=== PATIENT | male | born 1975 | race Caucasian/White ===

== ENCOUNTER 2017-02-05 09:25 | Emergency (ER) | payer SELFPAY ==
[~2017-02-05] VITALS: Ht 180.3 cm; Wt 120.0 kg
[2017-02-05 09:26] VITALS: BP 160/88; PULSE 82; RESP 16; TEMP 97.8; O2SAT 97
[2017-02-05] MEDS ORDERED: SODIUM CHLOR 0.9% 1000 ML INJ 1,000 ML IV ONE (09:39)
[2017-02-05] MEDS ORDERED: PROCHLORPERAZINE INJ 10 MG/2 ML VIAL IVP ONE (09:45)
[2017-02-05] MEDS ORDERED: KETOROLAC TROMETHAMINE 30 MG/ML (IVP) VIAL IVP ONE (09:45)
[2017-02-05] MEDS ORDERED: diphenhydrAMINE HCL 50 MG/ML VIAL IVP ONE (09:45)
[2017-02-05] MEDS ORDERED: SODIUM CHLORIDE 0.9% FLUSH 10 ML FLUSH IVF PRN (09:45)
--- NOTE | 2017-02-05 09:46 | PD ---
HPI Chief Complaint: Headache Time Seen by Provider: 09:37 Travel History International Travel<30 days: No Contact w/Intl Traveler<30days: No Traveled to known affect area: No History of Present Illness HPI 41-year-old male states that he has had a headache over the past couple of days. He denies any sudden onset. He states it feels like a right sided pressure. He states he doesn't get headaches frequently. He does note that he had a couple days of nonbloody diarrhea before this. He denies any vomiting or fever. He denies any other concurrent complaints. He denies any trauma. He denies specific modifying factors. Duration is couple of days. PFSH Past Medical History Medical History: Denies Significant Hx Past Surgical History Surgical History: No Previous Surgery Social History Tobacco Use: Yes Allergies-Medications (Allergen,Severity, Reaction): Coded Allergies: No Known Allergies (Unverified , 02/05/17) Reported Meds & Prescriptions Reported Meds & Active Scripts Active No Active Prescriptions or Reported Medications Review of Systems Except as stated in HPI: all other systems reviewed are Neg Physical Exam Narrative GENERAL: Well-nourished, well-developed patient. Well-appearing SKIN: Warm and dry. HEAD: Normocephalic and atraumatic. EYES: No injection or drainage. ENT: No nasal drainage noted. NECK: Supple, trachea midline. CARDIOVASCULAR: Regular rate and rhythm RESPIRATORY: No increased effort. No accessory muscle use. GASTROINTESTINAL: Abdomen soft, non-tender, nondistended. EXTREMITIES: No edema. NEUROLOGICAL: Awake and alert. Motor and sensory grossly within normal limits. Normal speech. Data Data Last Documented VS Vital Signs Date Time Temp Pulse Resp B/P (MAP) Pulse Ox O2 Delivery O2 Flow Rate FiO2 02/05/17 10:43 70 15 124/76 (92) 97 02/05/17 10:06 Room Air 02/05/17 09:26 97.8 Orders Orders Complete Blood Count With Diff (02/05/17 09:39) Basic Metabolic Panel (Bmp) (02/05/17 09:39) Ct Brain W/O Iv Contrast(Rout) (02/05/17 09:39) Ecg Monitoring (02/05/17 09:39) Iv Access Insert/Monitor (02/05/17 09:39) Oximetry (02/05/17 09:39) Sodium Chloride 0.9% Flush (Ns Flush) (02/05/17 09:45) Ketorolac Inj (Toradol Inj) (02/05/17 09:45) Prochlorperazine Inj (Compazine Inj) (02/05/17 09:45) Diphenhydramine Inj (Benadryl Inj) (02/05/17 09:45) Sodium Chlor 0.9% 1000 Ml Inj (Ns 1000 M (02/05/17 09:39) Ed Discharge Order (02/05/17 10:30) Labs Laboratory Tests Test 02/05/17 10:00 White Blood Count 5.9 TH/MM3 Red Blood Count 4.60 MIL/MM3 Hemoglobin 14.0 GM/DL Hematocrit 40.6 % Mean Corpuscular Volume 88.1 FL Mean Corpuscular Hemoglobin 30.5 PG Mean Corpuscular Hemoglobin Concent 34.6 % Red Cell Distribution Width 13.9 % Platelet Count 191 TH/MM3 Mean Platelet Volume 8.5 FL Neutrophils (%) (Auto) 58.9 % Lymphocytes (%) (Auto) 30.2 % Monocytes (%) (Auto) 7.0 % Eosinophils (%) (Auto) 3.3 % Basophils (%) (Auto) 0.6 % Neutrophils # (Auto) 3.5 TH/MM3 Lymphocytes # (Auto) 1.8 TH/MM3 Monocytes # (Auto) 0.4 TH/MM3 Eosinophils # (Auto) 0.2 TH/MM3 Basophils # (Auto) 0.0 TH/MM3 CBC Comment DIFF FINAL Differential Comment Blood Urea Nitrogen 11 MG/DL Creatinine 0.83 MG/DL Random Glucose 92 MG/DL Calcium Level 9.1 MG/DL Sodium Level 139 MEQ/L Potassium Level 4.1 MEQ/L Chloride Level 106 MEQ/L Carbon Dioxide Level 23.7 MEQ/L Anion Gap 9 MEQ/L Estimat Glomerular Filtration Rate 101 ML/MIN [facility] Medical Decision Making Medical Screen Exam Complete: Yes Emergency Medical Condition: Yes Medical Record Reviewed: Yes (past history confirmed) Interpretation(s) CBC & BMP Diagram 02/05/17 10:00 Calcium Level 9.1 Last [address] 02/05/17 0939 Signed Impressions: Service Date/Time: January 10:05 - CONCLUSION: Negative exam. Austin Mays MD Differential Diagnosis Tension, migraine, dehydration, URI Narrative Course Will check blood work, CT brain and dose with Compazine, Benadryl, Toradol and IV fluids and reevaluate ED workup no acute, Patient denies any new complaints and states that they are feeling better. Patient happy with care, all questions answered. Patient knows that follow up is incumbent on them and to return to the emergency room immediately if new or worsening symptoms develop. Patient given strict return precautions, vitals reviewed and are normal, agrees to further workup as an outpatient. Diagnosis Primary Impression: Cephalgia Qualified Codes: R51 - Headache Additional Impression: Diarrhea Qualified Codes: R19.7 - Diarrhea, unspecified Patient Instructions: General Instructions Additional Instructions: tylenol as needed, keep hydrated, follow with primary Med/Other Pt SpecificInfo: No Change to Meds Scripts No Active Prescriptions or Reported Meds Disposition: 01 DISCHARGE HOME Condition: Stable Reshma Simpson MD Feb 05, 2017 09:46
[2017-02-05 10:06] VITALS: BP 148/84; PULSE 78; RESP 15; O2SAT 97
[2017-02-05 10:09] LABS: AUTOMATED NEUTROPHIL # 3.5 TH/MM3 (1.8-7.7); BASOPHIL % 0.6 % (0.0-2.0); EOSINOPHIL # 0.2 TH/MM3 (0-0.4); EOSINOPHIL % 3.3 % (0.0-4.0); HEMATOCRIT 40.6 % (39.0-51.0); LYMPH % 30.2 % (9.0-44.0); LYMPHOCYTE # 1.8 TH/MM3 (1.0-4.8); MEAN CELL VOLUME 88.1 FL (80.0-100.0); MEAN CORPUSCULAR HEMOGLOBIN 30.5 PG (27.0-34.0); MEAN CORPUSCULAR HGB CONC 34.6 % (32.0-36.0); MEAN PLATELET VOLUME 8.5 FL (7.0-11.0); MONOCYTE # 0.4 TH/MM3 (0-0.9); NEUT % 58.9 % (16.0-70.0); PLATELET COUNT 191 TH/MM3 (150-450); RED CELL DISTRIBUTION WIDTH 13.9 % (11.6-17.2); WHITE BLOOD COUNT 5.9 TH/MM3 (4.0-11.0)
--- NOTE | 2017-02-05 10:13 | RADRPT ---
EXAM DATE/TIME: 02/05/2017 10:05 [facility] COMPARISON: No previous studies available for comparison. INDICATIONS : Cephalgia, right eye pain. RADIATION DOSE: 45.94 CTDIvol (mGy) MEDICAL HISTORY : None SURGICAL HISTORY : None. ENCOUNTER: Initial ACUITY: 1 day PAIN SCALE: 6/10 LOCATION: Right cranial TECHNIQUE: Multiple contiguous axial images were obtained of the head. Using automated exposure control and adj ustment of the mA and/or kV according to patient size, radiation dose was kept as low as reasonably a chievable to obtain optimal diagnostic quality images. DICOM format image data is available electro nically for review and comparison. FINDINGS: CEREBRUM: The ventricles are normal for age. No evidence of midline shift, mass lesion, hemorrhage or acute in farction. No extra-axial fluid collections are seen. POSTERIOR FOSSA: The cerebellum and brainstem are intact. The 4th ventricle is midline. The cerebellopontine angle i s unremarkable. EXTRACRANIAL: The visualized portion of the orbits is intact. SKULL: The calvaria is intact. No evidence of skull fracture. CONCLUSION: Negative exam. Austin Mays MD on February 05, 2017 at 10:10 Board Certified Radiologist. This report was verified electronically.
[2017-02-05 10:26] LABS: BICARBONATE 23.7 MEQ/L (21.0-32.0); CALCIUM 9.1 MG/DL (8.5-10.1); CREATININE 0.83 MG/DL (0.60-1.30)
[2017-02-05 10:43] VITALS: BP 124/76
== END 2017-02-05 11:08 | disposition home or self-care (01) ==
LOC: NEPE 09:25
DX: R51 Headache (principal); R19.7 Diarrhea, unspecified
CPT/HCPCS: 70450; 80048; 85025; 96361; 96374; 96375; 99285; J0780; J1200; J1885; J7030